=== PATIENT | female | born 1965 | race Caucasian/White ===

== ENCOUNTER → 2023-09-22 14:47 | Outpatient (REF) | payer BC, SELFPAY | LOC: RAD 14:47 | PROVIDERS: ATTENDING PHYSICIAN Family Medicine | DX: M54.42 Lumbago with sciatica, left side (principal) | CPT/HCPCS: 72110 ==

== ENCOUNTER → 2023-10-05 16:04 | Outpatient (REF) | payer BC, SELFPAY | LOC: RCS 16:04 | PROVIDERS: ATTENDING PHYSICIAN Family Medicine | DX: N18.31 Chronic kidney disease, stage 3a (principal); Q21.10 Atrial septal defect, unspecified | CPT/HCPCS: 93306 ==

== ENCOUNTER → 2023-10-25 08:03 | Outpatient (REF) | payer BC, SELFPAY | LOC: RAD 08:03 | PROVIDERS: ATTENDING PHYSICIAN Family Medicine | DX: R10.31 Right lower quadrant pain (principal) | CPT/HCPCS: 76700 ==

== ENCOUNTER → 2023-11-30 10:59 | Outpatient (REF) | payer BC, SELFPAY | LOC: PAVMRI 10:59 | PROVIDERS: ATTENDING PHYSICIAN Family Medicine | DX: M25.551 Pain in right hip (principal); M51.36 Other intervertebral disc degeneration, lumbar region; M79.671 Pain in right foot | CPT/HCPCS: 72148 ==

== ENCOUNTER → 2024-01-16 09:02 | Outpatient (REF) | payer BC, SELFPAY | LOC: RAD 09:02 | PROVIDERS: ATTENDING PHYSICIAN Urology; FAMILY PHYSICIAN Family Medicine | DX: Q62.39 Other obstructive defects of renal pelvis and ureter (principal) | CPT/HCPCS: 74178; Q9967 ==

== ENCOUNTER → 2024-06-26 10:23 | Outpatient (REF) | payer BC, SELFPAY | LOC: RAD 10:23 | PROVIDERS: ATTENDING PHYSICIAN Family Medicine | DX: M25.521 Pain in right elbow (principal); Q62.39 Other obstructive defects of renal pelvis and ureter; Z01.818 Encounter for other preprocedural examination; N13.30 Unspecified hydronephrosis | CPT/HCPCS: 73080; 93005 ==

== ENCOUNTER → 2024-09-05 08:29 | Outpatient (REF) | payer BC, SELFPAY | LOC: RAD 08:29 | PROVIDERS: ATTENDING PHYSICIAN Family Medicine | DX: E03.9 Hypothyroidism, unspecified (principal); R42 Dizziness and giddiness; E78.00 Pure hypercholesterolemia, unspecified | CPT/HCPCS: 77080; 93880 ==

== ENCOUNTER → 2025-02-14 15:53 | Outpatient (REF) | payer BC, SELFPAY | LOC: RAD 15:53 | PROVIDERS: ATTENDING PHYSICIAN Nurse Practitioner Adult Health | DX: M25.512 Pain in left shoulder (principal) | CPT/HCPCS: 73030 ==